=== PATIENT | female | born 1970 | race African-American/Black ===

== ENCOUNTER 2018-04-07 11:29 | Emergency (ER) | payer MEDICAID ==
[~2018-04-07] VITALS: Ht 165.1 cm; Wt 88.0 kg
[2018-04-07 11:50] VITALS: BP 149/93
--- NOTE | 2018-04-07 12:12 | Emergency Room Report ---
History of Present Illness General Chief Complaint: Skin Rash/Abscess Source: Patient Present Illness HPI patient is a 47-year-old female with history of hypertension controlled with medication here complaining of a few days of bilateral edema of lower legs post insect bites. She claims that she was exposed to a dog with fleas patient complains of a very pruritic rash on her lower extremity. Denies pain, fever, chills, SOB, chest pain, palpitation, no other associated symptoms. Allergies: Coded Allergies: No Known Allergies (Unverified , 04/07/18) Patient History Last Menstrual Period: 03/19/18 Now: No Reviewed Nursing Documentation: PMH: Agreed; PSxH: Agreed Nursing Documentation-PMH Past Medical History: No History, Except For Hx Hypertension: Yes Review of Systems All Other Systems: negative except mentioned in HPI Physical Exam Vital Signs Date Time Temp Pulse Resp B/P (MAP) Pulse Ox O2 Delivery O2 Flow Rate FiO2 04/07/18 11:36 98.0 92 16 149/93 97 Room Air 98.1 Sp02 EP Interpretation: reviewed, normal General Appearance: normal inspection, well appearing, no apparent distress, alert, GCS 15 Head: normocephalic, atraumatic Eyes: bilateral eye normal inspection, bilateral eye PERRL ENT: normal ENT inspection, hearing grossly normal, normal pharynx, no angioedema Neck: normal inspection, full range of motion, supple Respiratory: normal inspection, chest non-tender, lungs clear, normal breath sounds, no rhonchi, no respiratory distress, no retraction Cardiovascular #1: normal inspection, normal peripheral pulses, regular rate, rhythm, no edema, no murmur Gastrointestinal: normal inspection, normal bowel sounds, non tender, soft Rectal: deferred Genitourinary: deferred Musculoskeletal: normal inspection, back normal, digits/nails normal, gait/ station normal Neurologic: normal inspection, alert, oriented x3, responsive, tree trimmer helper III-XII nml as tested Psychiatric: normal inspection, judgement/insight normal, memory normal Skin: normal color, warm/dry, rash - diffuse papular insect bites on both lower extremities no pus formation no excess erythema or edema Lymphatic: normal inspection, no adenopathy, axilla node tender (R) Medical Decision Making PA Attestation palpation of orders, diagnosis, treatment plans were reviewed my supervising physician Dr. Isidro Diagnostic Impression: Primary Impression: Infected insect bite Additional Impression: Edema, lower extremity ER Course patient is a 47-year-old female with history of hypertension controlled with medication here complaining of a few days of bilateral edema of lower legs post insect bites. She claims that she was exposed to a dog with fleas patient complains of a very pruritic rash on her lower extremity. Denies pain, fever, chills, SOB, chest pain, palpitation, no other associated symptoms. Ddx considered but are not limited to insect bites, infected skin lesions Vital signs: are WNL, pt. is afebrile H&PE are most consistent with pruritic insect bite ORDERS: Motrin, Benadryl, Bactroban ointments. ED INTERVENTIONS: None required at this time. DISCHARGE: At this time pt. is stable for d/c to home. Will provide printed patient care instructions, and any necessary prescriptions. Care plan and follow up instructions have been discussed with the patient prior to discharge. Last Vital Signs Date Time Temp Pulse Resp B/P (MAP) Pulse Ox O2 Delivery O2 Flow Rate FiO2 04/07/18 11:50 98.1 16 149/93 97 Room Air 98.1 04/07/18 11:36 92 Disposition: HOME, SELF-CARE Condition: Stable Scripts Ibuprofen* (MOTRIN*) 600 Mg Tablet 600 MG ORAL FOUR TIMES A DAY, #30 TAB 0 Refills Prov: Isabelle Swain P.AAyana 04/07/18 Diphenhydramine Hcl (BENADRYL ALLERGY) 25 Mg Tablet 25 MG PO EVERY 12 HOURS for 10 Days, #20 TAB Prov: Isabelle Swain P.A. 04/07/18 Mupirocin Calcium (Bactroban) 15 Gm Cream..g. 1 APPLIC TOPIC THREE TIMES A DAY, #1 GM Prov: KellymogIsabelle vizcaino P.AAyana 04/07/18 Cephalexin* (KEFLEX*) 500 Mg Capsule 500 MG ORAL EVERY 6 HOURS for 7 Days, #28 CAP Prov: Isabelle Swain P.A. 04/07/18 Patient Instructions: Abscess, Edema Additional Instructions: take medication as directed. if fever/chills, shortness of breath return to ED. follow up with primary provider Isabelle Swain Apr 07, 2018 12:12
[2018-04-07] MEDS ORDERED: BENADRYL ALLERG25 M1 PO (12:14)
[2018-04-07] MEDS ORDERED: CEPHALEXIN500 MG ORAL (12:14)
[2018-04-07] MEDS ORDERED: BACTROBAN CR1 APPLIC TOPIC (12:14)
[2018-04-07] MEDS ORDERED: IBUPROFEN600 MG ORAL (12:18)
[2018-04-07 12:27] VITALS: BP 149/93
== END 2018-04-07 12:26 | disposition home or self-care (01) ==
LOC: EMR 12:10
DX: S80.862A Insect bite (nonvenomous), left lower leg, initial encounter (principal); S80.861A Insect bite (nonvenomous), right lower leg, initial encounter; L08.9 Local infection of the skin and subcutaneous tissue, unspecified; W57.XXXA Bitten or stung by nonvenomous insect and other nonvenomous arthropods, initial encounter; Y92.9 Unspecified place or not applicable; R60.0 Localized edema; I10 Essential (primary) hypertension
CPT/HCPCS: 99284